=== PATIENT | female | born 1980 | race Caucasian/White ===

== ENCOUNTER 2016-07-11 02:45 | Emergency (ER) | payer SELFPAY ==
[~2016-07-11] VITALS: Ht 165.1 cm; Wt 90.7 kg
[~2016-07-11 02:45] MED LIST: no home meds
[2016-07-11 03:01] VITALS: BP 120/73
--- NOTE | 2016-07-11 03:36 | NUR ---
PT AMBULATED TO ER BED 3
[2016-07-11] MEDS ORDERED: ONDANSETRON 4 MG ODT PO ONE (03:45)
[2016-07-11] MEDS ORDERED: HYDROcodone/APAP 10/325 MG 1 TAB TAB PO ONE (03:45)
[2016-07-11] MEDS ORDERED: NACL 0.9% 2,000 ML IV ONE (03:50)
--- NOTE | 2016-07-11 03:50 | NUR ---
35 Y/O F HERE W/C/O EPIGASTRIC PAIN, WHICH RADIATES TO R UPPER ABD WITH N/V FOR 2 DAYS. PER PT SHE HAD THIS PAIN BEFORE BUT THIS TIME PAIN WONT GO AWAY. ER MD MADE AWARE. NO S/S OF DISTRESS NOTED. PT ON MONITOR.
[2016-07-11] MEDS ORDERED: MORPHINE SULFATE 4 MG/ML SYR IVP ONE (04:35)
--- NOTE | 2016-07-11 05:44 | NUR ---
ULTRASOUND AT BEDSIDE.
--- NOTE | 2016-07-11 06:47 | NUR ---
PT RESTING IN BED AWATING FOR RESULTS. NO S/S OF DISTRESS NOTED AT THIS TIME.
[2016-07-11] MEDS ORDERED: ONDANSETRON 4 MG TAB PO ONE (07:10)
[2016-07-11 07:18] VITALS: BP 110/67
--- NOTE | 2016-07-11 07:18 | NUR ---
Patient discharged with v/s stable. Written and verbal after care instructions given and explained. Patient alert, oriented and verbalized understanding of instructions. Ambulatory with steady gait. All questions addressed prior to discharge. ID band removed. Patient advised to follow up with PMD IN 2 DAYS OR RETURN TO ER IF CONDITION WORSENS. Rx of NORCO AND ZOFRAN given. Patient educated on indication of medication including possible reaction and side effects. Opportunity to ask questions provided and answered.
== END 2016-07-11 07:18 | disposition home or self-care (01) ==
LOC: MED 02:45
DX: K80.20 Calculus of gallbladder without cholecystitis without obstruction (principal)
CPT/HCPCS: 36415; 76705; 80053; 81001; 81025; 83690; 85025; 96361; 96374; 99285; J2270; J7030; Q0092; Q0162; S0119

== ENCOUNTER 2016-07-25 16:57 | Emergency (ER) | payer MEDICAID ==
[~2016-07-25] VITALS: Ht 170.2 cm; Wt 92.1 kg
[2016-07-25 17:05] VITALS: BP 115/72
--- NOTE | 2016-07-25 17:05 | NUR ---
PATIENT PRESENTS TO ED WITH C/O RUQ ABD PAIN . PT STATES SHE HAS HX OF GALLSTONES . SKIN IS PINK/WARM/DRY; AAOX4 WITH EVEN AND STEADY GAIT; LUNGS CLEAR BL; HR EVEN AND REGULAR; PT DENIES ANY FEVER, CP, SOB, OR COUGH AT THIS TIME; PATIENT STATES PAIN OF 10/10 AT THIS TIME; VSS; PATIENT POSITIONED FOR COMFORT; HOB ELEVATED; BEDRAILS UP X2; BED DOWN. ER MD MADE AWARE OF PT STATUS.
[2016-07-25] MEDS ORDERED: KETOROLAC 60 MG/2 ML VIAL IM ONE (17:10)
--- NOTE | 2016-07-25 17:45 | NUR ---
Patient discharged with v/s stable. Written and verbal after care instructions given and explained. Patient alert, oriented and verbalized understanding of instructions. Ambulatory with steady gait. All questions addressed prior to discharge. ID band removed. Patient advised to follow up with PMD. Rx of CIPRO AND NORCO given. Patient educated on indication of medication including possible reaction and side effects. Opportunity to ask questions provided and answered.
[2016-07-25 17:46] VITALS: BP 103/60
== END 2016-07-25 17:45 | disposition home or self-care (01) ==
LOC: MED 16:57
DX: K80.80 Other cholelithiasis without obstruction (principal); N12 Tubulo-interstitial nephritis, not specified as acute or chronic
CPT/HCPCS: 81002; 81025; 96372; 99283; J1885

== ENCOUNTER 2017-06-04 09:39 | Inpatient (IN) | payer MEDICAID ==
[~2017-06-04] VITALS: Ht 165.1 cm; Wt 93.2 kg
[2017-06-04 09:48] VITALS: BP 104/66
[2017-06-04] MEDS ORDERED: KETOROLAC 30 MG/ML VIAL IVP ONE (10:00)
[2017-06-04 10:13] LABS: BASOPHILS # (AUTO) 0.2 K/uL (0.00-0.22); BASOPHILS % (AUTO) 1.9 % (0.0-2.0); EOSINOPHILS # (AUTO) 0.1 K/uL (0-0.4); EOSINOPHILS % (AUTO) 0.9 % (0.0-4.0); HEMATOCRIT 39.1 % (36-48); HEMOGLOBIN 13.3 g/dL (12.0-16.0); LYMPHOCYTES # (AUTO) 1.4 K/uL (2.5-16.5); LYMPHOCYTES % (AUTO) 14.8 % (20.5-51.1); MEAN CORPUSCULAR HEMOGLOBIN 31 pg (27-31); MEAN CORPUSCULAR HGB CONC 34 g/dL (33-37); MEAN CORPUSCULAR VOLUME 90 fL (80-94); MONOCYTES # (AUTO) 0.4 K/uL (0.8-1.0); MONOCYTES % (AUTO) 4.1 % (1.7-9.3); NEUTROPHILS # (AUTO) 7.7 K/uL (1.8-7.7); NEUTROPHILS % (AUTO) 78.3 % (42.2-75.2); PLATELET COUNT (AUTO) 266 K/uL (140-450); RED BLOOD CELL COUNT(AUTO) 4.36 MIL/uL (4.20-5.40); RED CELL DISTRIBUTION WIDTH 12.8 % (11.6-13.7); WHITE BLOOD COUNT (AUTO) 9.8 K/uL (4.8-10.8)
[2017-06-04 10:15] LABS: APPEARANCE,URINE HAZY (CLEAR); BILIRUBIN,URINE NEGATIVE (NEGATIVE); BLOOD, URINE NEGATIVE (NEGATIVE); COLOR,URINE YELLOW (YELLOW); LEUKOCYTE ESTERASE ,URINE 1+ (NEGATIVE); NITRITE, URINE NEGATIVE (NEGATIVE); PH,URINE 5.5 (5.0-9.0); UGLUCOSE NEGATIVE (NEGATIVE)
[2017-06-04 10:22] LABS: ANION GAP 15.8 (8-16); CARBON DIOXIDE 22.4 mmol/L (21-32); CREATININE 0.6 mg/dL (0.6-1.3); POTASSIUM 4.2 mmol/L (3.5-5.1)
[2017-06-04 10:29] LABS: ALBUMIN 3.5 g/dL (3.4-5.0); TOTAL BILIRUBIN 0.3 mg/dL (0.0-1.0)
[2017-06-04 10:43] LABS: RBC,URINE 0-5 (RARE) /HPF (0-5); WBC,URINE 0-5 (RARE) /HPF (0-5)
[2017-06-04 10:44] LABS: URINE AMORPHOUS URATE 1+ /HPF (None Seen)
[2017-06-04] MEDS ORDERED: MORPHINE SULFATE 4 MG/ML SYR IVP ONE (11:00)
[2017-06-04] MEDS ORDERED: NACL 0.9% 1,000 ML IV SCH (11:08)
[2017-06-04] MEDS ORDERED: ACETAMINOPHEN 325 MG TAB PO PRN (11:10)
[2017-06-04] MEDS ORDERED: DOCUSATE SODIUM 100 MG GELCAP PO PRN (11:10)
[2017-06-04] MEDS ORDERED: KETOROLAC 30 MG/ML VIAL IVP PRN (11:10)
[2017-06-04 11:54] LABS: PROTHROMBIN TIME 10.4 secs (10.8-13.4)
[2017-06-04 12:00] VITALS: BP 96/57
[2017-06-04] MEDS: LACTOBACILLUS RHAMNOSUS GG 1 EACH CAP PO SCH (12:05)
[2017-06-04 12:17] LABS: PHOSPHORUS 3.7 mg/dL (2.5-4.9)
[2017-06-04 12:18] LABS: AMYLASE 37 U/L (25-115)
[2017-06-04] MEDS: LEVOFLOXACIN 750 MG/D5W PREMIX 150 ML IV SCH (12:31)
[2017-06-04 12:40] LABS: CHOL/HDL RATIO 2.3 (1-4.5); FREE T4 (FREE THYROXINE) 0.88 ng/dL (0.76-1.46); HDL CHOLESTEROL 52 mg/dL (40-60); LDL (CALC) 59 mg/dL (60-100); MAGNESIUM 1.8 mg/dL (1.8-2.4); THYROID STIMULATING HORMONE 0.93 uIU/mL (0.34-3.74); TRIGLYCERIDES 56 mg/dL (30-150)
[2017-06-04] MEDS ORDERED: INSULIN LISPRO SLIDING SCALE 100 UNITS/ML VIAL SUBQ PRN (13:05)
[2017-06-04] MEDS ORDERED: DEXTROSE 50% 50 ML SYR IVP PRN (13:05)
[2017-06-04 13:13] LABS: BARBITURATE, URINE NEG. ng/ml (NEG <=200); BENZODIAZEPINE, URINE NEG. ng/mL (NEG <=200); CANNABINOID, URINE NEG. ng/mL (NEG <=50); COCAINE, URINE NEG. ng/mL (NEG <=300); OPIATE, URINE NEG. ng/mL (NEG <=2000); PHENCYCLIDINE SCREEN,URINE NEG. ng/mL (NEG <=25)
[2017-06-04] MEDS: metroNIDAZOLE 500 MG/NS PREMIX 100 ML IV SCH ×2 (14:13→20:18)
[2017-06-04] MEDS: MORPHINE SULFATE 2 MG/ML SYR IVP PRN ×2 (15:07→20:18)
[2017-06-04 16:00] VITALS: BP 93/51
[2017-06-04] MEDS: BLOOD GLUCOSE MONITORING 1 DEV DEV FS SCH ×2 (16:30→20:08)
[2017-06-04] MEDS ORDERED: BUPIVACAINE-MPF 0.25% 30 ML VIAL INJ ONE (16:45)
[2017-06-04] MEDS ORDERED: GLYCOPYRROLATE 0.2 MG/ML VIAL ONE (17:00)
[2017-06-04] MEDS ORDERED: PHENYLEPHRINE 10 MG/ML VIAL ONE (17:00)
[2017-06-04] MEDS ORDERED: MEPERIDINE 25 MG/ML SYR ONE (17:00)
[2017-06-04] MEDS ORDERED: ONDANSETRON 4 MG/2 ML VIAL ONE (17:00)
[2017-06-04] MEDS ORDERED: DEXAMETHASONE 10 MG/ML VIAL ONE (17:00)
[2017-06-04] MEDS ORDERED: KETOROLAC 60 MG/2 ML VIAL IM ONE (17:00)
[2017-06-04] MEDS ORDERED: SEVOFLURANE 250 ML BTL INH ONE (17:00)
[2017-06-04] MEDS ORDERED: MIDAZOLAM 2 MG/2 ML VIAL ONE (17:08)
[2017-06-04] MEDS ORDERED: MORPHINE SULFATE 4 MG/ML SYR ONE (17:08)
[2017-06-04] MEDS ORDERED: fentaNYL 0.05 MG/ML VIAL ONE (17:08)
[2017-06-04] MEDS ORDERED: MIDAZOLAM 2 MG/2 ML VIAL IV ONE (18:00)
[2017-06-04] MEDS ORDERED: MORPHINE SULFATE 4 MG/ML SYR IVP PRN ×2 (18:00)
[2017-06-04] MEDS ORDERED: MORPHINE SULFATE 2 MG/ML SYR IVP PRN (18:00)
[2017-06-04] MEDS: ONDANSETRON 4 MG/2 ML VIAL IM/IVP PRN (19:36)
[2017-06-04 20:00] VITALS: BP 95/53
[2017-06-04] MEDS: DEXT 5% / NACL 0.45% 1,000 ML IV SCH (20:15)
[2017-06-05] VITALS: BP 103/51
[2017-06-05] MEDS: MORPHINE SULFATE 2 MG/ML SYR IVP PRN ×3 (00:20→09:33)
[2017-06-05 04:00] VITALS: BP 108/66
[2017-06-05] MEDS: DEXT 5% / NACL 0.45% 1,000 ML IV SCH ×3 (04:10→23:42)
[2017-06-05] MEDS: metroNIDAZOLE 500 MG/NS PREMIX 100 ML IV SCH ×3 (05:08→20:28)
[2017-06-05 05:51] LABS: BASOPHILS # (AUTO) 0.1 K/uL (0.00-0.22); EOSINOPHILS # (AUTO) 0.1 K/uL (0-0.4); EOSINOPHILS % (AUTO) 1.1 % (0.0-4.0); HEMATOCRIT 35.8 % (36-48); LYMPHOCYTES # (AUTO) 0.8 K/uL (2.5-16.5); LYMPHOCYTES % (AUTO) 9.7 % (20.5-51.1); MEAN CORPUSCULAR HEMOGLOBIN 30 pg (27-31); MEAN CORPUSCULAR HGB CONC 34 g/dL (33-37); MEAN CORPUSCULAR VOLUME 91 fL (80-94); MONOCYTES # (AUTO) 0.2 K/uL (0.8-1.0); MONOCYTES % (AUTO) 2.9 % (1.7-9.3); NEUTROPHILS # (AUTO) 7.3 K/uL (1.8-7.7); NEUTROPHILS % (AUTO) 85.3 % (42.2-75.2); PLATELET COUNT (AUTO) 229 K/uL (140-450); RED BLOOD CELL COUNT(AUTO) 3.94 MIL/uL (4.20-5.40); RED CELL DISTRIBUTION WIDTH 12.8 % (11.6-13.7); WHITE BLOOD COUNT (AUTO) 8.5 K/uL (4.8-10.8)
[2017-06-05 06:21] LABS: MAGNESIUM 1.8 mg/dL (1.8-2.4); PHOSPHORUS 3.6 mg/dL (2.5-4.9)
[2017-06-05 06:22] LABS: T4 (THYROXINE) 6.7 ug/dL (4.5-12.0)
[2017-06-05 06:24] LABS: ANION GAP 15.4 (8-16); CARBON DIOXIDE 22.5 mmol/L (21-32); CREATININE 0.6 mg/dL (0.6-1.3); POTASSIUM 4.9 mmol/L (3.5-5.1)
[2017-06-05] MEDS: BLOOD GLUCOSE MONITORING 1 DEV DEV FS SCH ×3 (06:48→16:46)
[2017-06-05 08:00] VITALS: BP 100/55
[2017-06-05] MEDS: ONDANSETRON 4 MG/2 ML VIAL IM/IVP PRN (09:33)
[2017-06-05] MEDS: LACTOBACILLUS RHAMNOSUS GG 1 EACH CAP PO SCH (09:33)
[2017-06-05 12:00] VITALS: BP 110/62
[2017-06-05] MEDS: LEVOFLOXACIN 750 MG/D5W PREMIX 150 ML IV SCH (12:14)
[2017-06-05 16:00] VITALS: BP 103/58
[2017-06-05] MEDS: HYDROcodone/APAP 7.5/325 MG 1 TAB PO PRN (16:53)
[2017-06-05] MEDS ORDERED: SIMETHICONE 80 MG TAB.CHEW PO SCH (18:00)
[2017-06-05 20:00] VITALS: BP 97/52
[2017-06-06] VITALS: BP 95/55
[2017-06-06 04:00] VITALS: BP 103/62
[2017-06-06] MEDS: metroNIDAZOLE 500 MG/NS PREMIX 100 ML IV SCH ×2 (04:10→13:00)
[2017-06-06] MEDS: HYDROcodone/APAP 7.5/325 MG 1 TAB PO PRN (05:40)
[2017-06-06 06:35] LABS: HEMATOCRIT 33.8 % (36-48); HEMOGLOBIN 11.2 g/dL (12.0-16.0); MEAN CORPUSCULAR HEMOGLOBIN 30 pg (27-31); MEAN CORPUSCULAR HGB CONC 33 g/dL (33-37); MEAN CORPUSCULAR VOLUME 91 fL (80-94); PLATELET COUNT (AUTO) 225 K/uL (140-450); RED BLOOD CELL COUNT(AUTO) 3.72 MIL/uL (4.20-5.40); RED CELL DISTRIBUTION WIDTH 12.8 % (11.6-13.7); WHITE BLOOD COUNT (AUTO) 6.3 K/uL (4.8-10.8)
[2017-06-06 07:02] LABS: ANION GAP 10.6 (8-16); CARBON DIOXIDE 25.2 mmol/L (21-32); CREATININE 0.6 mg/dL (0.6-1.3); POTASSIUM 3.8 mmol/L (3.5-5.1)
[2017-06-06 07:04] LABS: MAGNESIUM 1.7 mg/dL (1.8-2.4); PHOSPHORUS 3.2 mg/dL (2.5-4.9)
[2017-06-06 07:52] LABS: LYMPHOCYTES % (MANUAL) 32 % (20-46); MONOCYTES % (MANUAL) 3 % (5-12)
[2017-06-06 08:00] VITALS: BP 108/58
[2017-06-06] MEDS ORDERED: SIMETHICONE 80 MG TAB.CHEW PO SCH ×2 (08:35→11:00)
[2017-06-06] MEDS: LACTOBACILLUS RHAMNOSUS GG 1 EACH CAP PO SCH (09:26)
[2017-06-06] MEDS: DEXT 5% / NACL 0.45% 1,000 ML IV SCH (10:32)
[2017-06-06] MEDS ORDERED: DOCUSATE SODIUM 100 MG GELCAP PO SCH (11:00)
[2017-06-06] MEDS ORDERED: ACET-2869 PO (11:34)
[2017-06-06] MEDS ORDERED: DOCU-299 PO (11:34)
[2017-06-06] MEDS ORDERED: MAGNESIUM OXIDE 400 MG TAB PO SCH (11:40)
[2017-06-06 12:00] VITALS: BP 121/64
[2017-06-06] MEDS: LEVOFLOXACIN 750 MG/D5W PREMIX 150 ML IV SCH (12:26)
== END 2017-06-06 15:50 | disposition home or self-care (01) | DRG 225 ==
LOC: MED 09:39 → MTU 11:08
PROVIDERS: ADMIT Student in an Organized Health Care Education/Training Program; ATTEND Student in an Organized Health Care Education/Training Program
PROC: 0DTJ4ZZ Resection of Appendix, Percutaneous Endoscopic Approach (ICD-10-PCS; principal; 2017-06-04 17:00)
DX: K35.80 Unspecified acute appendicitis (principal); E83.42 Hypomagnesemia; Z90.49 Acquired absence of other specified parts of digestive tract; Z98.51 Tubal ligation status
CPT/HCPCS: 36415; 71045; 80048; 80053; 80305; 81001; 82150; 82374; 82550; 82948; 83036; 83605; 83690; 83735; 83880; 84100; 84436; 84439; 84443; 84479; 84484; 85025; 85610; 85730; 86886; 86900; 86901; 87081; 87086; 96374; 96375; 99285; G0482; J1100; J1815; J1885; J1956; J2175; J2250; J2270; J2370; J2405; J3010; J3490; J7030; Q0092

== ENCOUNTER 2023-08-25 09:12 | Day surgery (SDC) | payer OTHER ==
[~2023-08-25] VITALS: Ht 165.1 cm; Wt 107.5 kg
[~2023-08-25 09:12] MED LIST changes: +DOCU-299 PO; +HYDR-5122 PO; -no home meds
[2023-08-25] MEDS ORDERED: ACETAMINOPHEN 100 ML IV ONE (11:24)
[2023-08-25] MEDS ORDERED: fentaNYL citrate 0.05 MG/ML VIAL ONE (11:26)
[2023-08-25] MEDS ORDERED: MIDAZOLAM 2 MG/2 ML VIAL ONE (11:27)
[2023-08-25] MEDS ORDERED: PROPOFOL 200 MG/20 ML VIAL IV ONE ×2 (11:28→11:43)
[2023-08-25] MEDS ORDERED: SEVOFLURANE 250 ML BTL INH ONE (11:33)
[2023-08-25] MEDS ORDERED: ONDANSETRON 4 MG/2 ML VIAL ONE ×2 (11:43)
[2023-08-25] MEDS ORDERED: DEXAMETHASONE 4 MG/ML VIAL ONE ×2 (11:43)
[2023-08-25] MEDS: HYDROmorphone 1 MG/ML AMP IVP PRN (12:23)
[2023-08-25] MEDS ORDERED: HYDROmorphone PFS 2 MG/ML SYR ONE (12:27)
[2023-08-25] MEDS ORDERED: oxyCODONE/APAP 5/325 MG 1 TAB TAB PO PRN (13:10)
[2023-08-25] MEDS ORDERED: KETOROLAC 30 MG/ML VIAL ONE (13:14)
[2023-08-25] MEDS: KETOROLAC 30 MG/ML VIAL IVP SCH (13:15)
== END 2023-08-25 14:35 | disposition home or self-care (01) ==
LOC: MMU 09:12 → MDS 09:12
PROVIDERS: ATTEND Obstetrics & Gynecology
DX: N92.0 Excessive and frequent menstruation with regular cycle (principal); D25.1 Intramural leiomyoma of uterus; Z90.49 Acquired absence of other specified parts of digestive tract; Z98.51 Tubal ligation status; Z79.899 Other long term (current) drug therapy; Z98.890 Other specified postprocedural states
CPT/HCPCS: 58558; 93005; C1758; J1100; J1170; J1885; J2250; J2405; J2704; J3010